=== PATIENT | male | born 1955 | race African-American/Black ===

== ENCOUNTER 2020-07-16 13:19 | Emergency (ER) | payer MEDICARE ==
[~2020-07-16] VITALS: Ht 188 cm; Wt 84.1 kg
[2020-07-16 13:33] VITALS: Ht 188 cm; Wt 84.1 kg
[2020-07-16 14:28] LABS: BASOPHILS 0.2 % (0-2); EOSINOPHILS 0.6 % (0-7); HEMATOCRIT 43.3 % (42.0-54.0); HEMOGLOBIN 13.9 g/dL (13.5-17.5); IMMATURE GRANULOCYTES 0.4 % (0-5); LYMPHOCYTES 18.3 % (15-50); MCH 27.7 pg (26.0-34.0); MCHC 32.1 g/dL (31.0-37.0); MCV 86.4 fL (80.0-100.0); MEAN PLATELET VOLUME 10.5 fL (7.4-10.4); MONOCYTES 5.4 % (2-11); NEUTROPHILS 75.1 % (40-80); PLATELET COUNT 211 10x3/uL (130-400); RBC 5.01 10x6/uL (4.20-6.10)
[2020-07-16 14:40] LABS: CALC OSMOLALITY 276 mosm/kg (275-300); CARBON DIOXIDE 32.6 mmol/L (21.0-32.0); CHLORIDE - SERUM 102 mmol/L (98-107); GLUCOSE 138 mg/dL (74-106); POTASSIUM - SERUM 4.3 mmol/L (3.5-5.1); SODIUM 137 mmol/L (136-145); UREA NITROGEN 14 mg/dL (7-18); eGFR NON AFRICAN AMERICAN 79 mL/min (90-120)
[2020-07-16 14:43] LABS: ALBUMIN 3.8 g/dL (3.4-5.0); ALKALINE PHOSPHATASE 82 U/L (30-120); ALT (SGPT) 36 U/L (10-68); BILIRUBIN - TOTAL 0.46 mg/dL (0.2-1.3); PROTEIN - SERUM 8.5 g/dL (6.4-8.2)
[2020-07-16] MEDS ORDERED: MEDROL DOSE PACK4 MG PO (15:12)
[2020-07-16] MEDS ORDERED: TRIAMTERENE-HC1 EAC6 PO (15:12)
[2020-07-16] MEDS ORDERED: EPIPEN 2-P0.3 MG/0.3 IM (15:13)
[2020-07-16 15:21] VITALS: BP 148/74
== END 2020-07-16 15:22 | disposition home or self-care (01) ==
LOC: D.ER 13:19
PROVIDERS: Family Medicine
DX: R51.9 Headache, unspecified (principal); T50.905A Adverse effect of unspecified drugs, medicaments and biological substances, initial encounter; I10 Essential (primary) hypertension